=== PATIENT | male | born 2000 | race Caucasian/White ===

== ENCOUNTER 2018-12-26 18:35 | Emergency (ER) | payer BC ==
--- NOTE | 2018-12-26 19:43 | EDM.PDOC ---
ED HPI GENERAL MEDICAL PROBLEM - General Chief Complaint: Chest Pain Stated Complaint: FAST PULSE,CHEST TIGHT Time Seen by Provider: 12/26/18 18:55 Source of Information: Reports: Patient, RN Notes Reviewed - History of Present Illness INITIAL COMMENTS - FREE TEXT/NARRATIVE: 18 year old male comes in with concern about intermitent chest pain today, palpiations, no specific dizziness. He has less severe sx very occasionally in the past. He does not take any meds on a regular basis. Has had borderline Htn in the past felt to be white coat syndrome. He does not smoke, is not diabetic. He does drink some but not a lot of caffienated tea, not much today. No current chest or abd pain, no difficulty breathing. Has not been having Headache, or visual difficulties. Chest Pain Score (Numeric/FACES): 2 - Related Data Allergies Allergy/AdvReac Type Severity Reaction Status Date / Time No Known Allergies Allergy Verified 12/26/18 19:28 Home Meds: Home Meds Lisinopril 10 mg PO DAILY #30 tablet 12/26/18 [Rx] Past Medical History - Past Health History Medical/Surgical History: Denies Medical/Surgical History HEENT History: Reports: Impaired Vision Cardiovascular History: Reports: Hypertension Respiratory History: Reports: None Gastrointestinal History: Reports: None Genitourinary History: Reports: None Musculoskeletal History: Reports: None Neurological History: Reports: None Psychiatric History: Reports: None Endocrine/Metabolic History: Reports: None Hematologic History: Reports: None Immunologic History: Reports: None Oncologic (Cancer) History: Reports: None Dermatologic History: Reports: Eczema, Other (See Below) - Infectious Disease History Infectious Disease History: Reports: None - Past Surgical History HEENT Surgical History: Reports: Oral Surgery Social & Family History - Family History Family Medical History: Noncontributory Cardiac: Reports: CAD - Tobacco Use Smoking Status *Q: Never Smoker - Caffeine Use Caffeine Use: Reports: Coffee, Tea - Recreational Drug Use Recreational Drug Use: No ED ROS GENERAL - Review of Systems Review Of Systems: See Below Constitutional: Reports: Diaphoresis (felt mildly sweaty this afternoon when he had about a half hr episode of anterior chest discomfort). Denies: Fever, Chills HEENT: Reports: No Symptoms Respiratory: Denies: Shortness of Breath, Pleuritic Chest Pain Cardiovascular: Reports: Chest Pain (gone) GI/Abdominal: Denies: Abdominal Pain, Nausea, Vomiting Skin: Denies: Rash Neurological: Reports: Dizziness. Denies: Headache, Numbness, Tingling, Trouble Speaking, Weakness ED EXAM, GENERAL - Physical Exam Exam: See Below General Appearance: Alert, No Apparent Distress Eye Exam: Bilateral Eye: PERRL Throat/Mouth: Normal Inspection, Normal Oropharynx Head: Atraumatic. No: Facial Swelling Neck: Supple, Full Range of Motion, Other (thyroid not enlarged) Respiratory/Chest: No Respiratory Distress, Lungs Clear, Normal Breath Sounds Cardiovascular: Regular Rate, Rhythm (heart rate 96 at time of my exam) GI/Abdominal: Soft, Non-Tender, No Mass. No: Guarding Back Exam: No: CVA Tenderness (L), CVA Tenderness (R) Extremities: Normal Inspection, No Pedal Edema Neurological: Alert, Oriented, No Motor/Sensory Deficits Skin Exam: Warm, Dry, Normal Color EKG INTERPRETATION EKG Date: 12/26/18 Morris: Normal P-Wave: Present QRS: Normal ST-T: Other (ST very mildly elevated V2) QT: Prolonged Course - Vital Signs Last Recorded V/S: Last Vital Signs Temp 99.3 F 12/26/18 18:56 Pulse 112 H 12/26/18 18:56 Resp 16 12/26/18 18:56 BP 167/98 H 12/26/18 18:56 Pulse Ox 100 12/26/18 18:56 - Orders/Labs/Meds Orders: Active Orders 24 hr Category Date Time Status EKG 12 Lead [EKG Documentation Completion] [RC] STAT Care 12/26/18 19:24 Active Holter Monitor 48 Hours [RC] .PRN Care 12/26/18 21:03 Active Chest 1V Frontal [CR] Stat Exams 12/26/18 19:25 Taken Labs: Laboratory Tests 12/26/18 12/26/18 12/26/18 Range/Units 19:30 19:40 19:40 WBC 7.25 (4.23-9.07) K/mm3 RBC 5.59 (4.63-6.08) M/mm3 Hgb 16.6 (13.7-17.5) gm/L Hct 47.3 (40.1-51.0) % MCV 84.6 (79.0-92.2) fl MCH 29.7 (25.7-32.2) pg MCHC 35.1 (32.2-35.5) g/dl RDW Std Deviation 39.5 (35.1-43.9) fL Plt Count 260 (163-337) K/mm3 MPV 10.2 (9.4-12.3) fl Neut % (Auto) 65.7 (34.0-67.9) % Lymph % (Auto) 23.3 (21.8-53.1) % [place] % (Auto) 10.1 (5.3-12.2) % Eos % (Auto) 0.4 L (0.8-7.0) Baso % (Auto) 0.4 (0.1-1.2) % Neut # (Auto) 4.76 (1.78-5.38) K/mm3 Lymph # (Auto) 1.69 (1.32-3.57) K/mm3 [place] # (Auto) 0.73 (0.30-0.82) K/mm3 Eos # (Auto) 0.03 L (0.04-0.54) K/mm3 Baso # (Auto) 0.03 (0.01-0.08) K/mm3 Sodium 142 (136-145) mEq/L Potassium 3.4 L (3.5-5.1) mEq/L Chloride 105 (98-107) mEq/L Carbon Dioxide 26 (21-32) mEq/L Anion Gap 14.4 (5-15) BUN 13 (7-18) mg/dL Creatinine 0.9 (0.7-1.3) mg/dL Est Cr Clr Drug Dosing 117.60 mL/min Estimated GFR (MDRD) > 60 (>60) mL/min BUN/Creatinine Ratio 14.4 (14-18) Glucose 85 (74-106) mg/dL Calcium 9.1 (8.5-10.1) mg/dL Total Bilirubin 0.6 (0.2-1.0) mg/dL AST 9 L (15-37) U/L ALT 19 (16-63) U/L Alkaline Phosphatase 72 (46-116) U/L Total Protein 7.7 (6.4-8.2) g/dl Albumin 4.6 (3.4-5.0) g/dl Globulin 3.1 gm/dL Albumin/Globulin Ratio 1.5 (1-2) TSH 3rd Generation 1.135 (0.516-4.13) uIU/mL Urine Color Yellow (Yellow) Urine Appearance Clear (Clear) Urine pH 6.5 (5.0-8.0) Ur Specific [place] 1.010 (1.005-1.030) Urine Protein Negative (Negative) Urine Glucose (UA) Negative (Negative) Urine Ketones Negative (Negative) Urine Occult Blood Negative (Negative) Urine Nitrite Negative (Negative) Urine Bilirubin Negative (Negative) Urine Urobilinogen 0.2 (0.2-1.0) Ur Leukocyte Esterase Negative (Negative) - Re-Assessments/Exams Free Text/Narrative Re-Assessment/Exam: 12/26/18 22:58. Labs did come back normal, EKG normal. Chest x-ray normal. Blood pressure did continue to run high. Therefore have ordered renal ultrasound and also have ordered a cardiac echocardiogram based on prior symptoms of palpiations, atypical chest pain and unexplained dizziness. I have asked that they take 3-4 blood pressure readings per day for the next few days and than at least a couple of readings per day until his next clinic visit. IF blood pressure does continue to run high at home over the next 2 days then as suggested he do start lisinopril 10 mg daily, prescription was provided. Disharge instructions as documented. Departure - Departure Time of Disposition: 21:06 Disposition: Home, Self-Care 01 Condition: Fair Clinical Impression: Atypical chest pain, Palpitations, Dizziness Hypertension Qualifiers: Hypertension type: unspecified Qualified Code(s): I10 - Essential (primary) hypertension Prescriptions: Lisinopril 10 mg PO DAILY #30 tablet Instructions: Nonspecific Chest Pain, [id number], Hypertension, [id number] Referrals: Malik Benavides MD [Primary Care Provider] - Forms: ED Department Discharge Additional Instructions: Try check blood pressure readings 3-4 times daily for the next few days and than at least twice a day thereafter. Keep a log for Dr. Croft or your other clinic providers to review. If your blood pressure continues to run elevated above 150/90 on average for the next 2 days then start lisinopril 10 mg daily, prescription provided. 48 hour Holter monitor. Order has been sent to radiology for renal ultrasound. Radiology should call you in the morning to schedule up for a time for that. Follow-up with Dr. Croft or one of the other clinic providers if Dr. Croft not available in about 8-10 days, call for appointment. Return to ED as needed if symptoms worsening in any way. - My Orders Last 24 Hours: My Active Orders 12/26/18 19:24 EKG 12 Lead [EKG Documentation Completion] [RC] STAT 12/26/18 19:25 Chest 1V Frontal [CR] Stat 12/26/18 21:03 Holter Monitor 48 Hours [RC] .PRN - Assessment/Plan Last 24 Hours: My Active Orders 12/26/18 19:24 EKG 12 Lead [EKG Documentation Completion] [RC] STAT 12/26/18 19:25 Chest 1V Frontal [CR] Stat 12/26/18 21:03 Holter Monitor 48 Hours [RC] .PRN
--- NOTE | 2018-12-27 07:06 | CR ---
Chest: Portable view of the chest was obtained. Comparison: No previous study. Heart is generous in size but felt to be accentuated from portable technique. Upper mediastinum is normal. Lungs are clear with no acute parenchymal change. Bony structures are grossly intact. Impression: 1. Nothing acute is appreciated on portable chest x-ray. Diagnostic code #1
== END 2018-12-26 21:25 | disposition home or self-care (01) ==
LOC: JD.ED 18:35
DX: R07.89 Other chest pain (principal); R00.2 Palpitations; I10 Essential (primary) hypertension; Z79.899 Other long term (current) drug therapy
CPT/HCPCS: 36415; 71045; 71045-26; 80053; 81003; 84443; 85025; 93005; 93010; 93225; 93226; 99284; 99284-25